=== PATIENT | male | born 1940 | race Caucasian/White ===

== ENCOUNTER 2018-03-12 10:47 | Inpatient (IN) | payer OTHER, SELFPAY ==
[2018-03-03 13:46] VITALS: BMI 40.1
[2018-03-12] VITALS (19 sets, daily range): BP systolic 96–138; BP diastolic 39–73; PULSE 65–92; RESP 12–18; TEMP 36–36.8; O2SAT 90–99; BMI 40.5
--- NOTE | 2018-03-12 | DI.RAD.S_ITS ---
PROCEDURE: XR LUMBAR SPINE 2-3V INDICATIONS: L-4 5 XLIF LAMINECTOMY W ANT AND POST INSTRUMENTATION W/BONE TECHNIQUE: 2 views of the lumbar spine were acquired. COMPARISON: None. FINDINGS: Bones: Intraoperative images demonstrating postsurgical changes compatible with placement of fixation hardware for L4-L5 posterior fusion noted. Fixation hardware is intact. Soft tissues: Overlying bowel gas pattern is normal. No suspicious soft tissue calcifications. IMPRESSION: Expected postsurgical change for except XLIF. Dictated by: Emmie Dias MD, PhD on 03/12/2018 at 18:32 Approved by: Emmie Dias MD, PhD on 03/12/2018 at 18:33
--- NOTE | 2018-03-12 11:32 | PM.PREOP ---
Pre-operative Note Interval Note Pre-op Check: Yes History & Physical Reviewed by Physician and Yes Exam Performed Changes: No
[2018-03-12] MEDS: LACTATED RINGERS 1,000 ML 42 ML IV (11:38)
[2018-03-12] MEDS: CEFAZOLIN 2 GM/100 ML FROZ.PIGGY IV ×2 (12:22→16:12)
[2018-03-12] MEDS: CEFAZOLIN VIAL 1 GM in SODIUM CHLORIDE 0.9% 100 ML 200 ML IV (12:22)
--- NOTE | 2018-03-12 13:09 | SUR.OPER ---
Right lateral on padded OR table. Head on pillow, gel axillary roll, pillow to support left arm. Legs flexed, pillows between legs, gel pad under down leg and ankle. Multiple passes of 3 inch cloth tape across shoulder, hip, upper and lower legs to secure patient on OR table. Prone on spine table, head in foam head support, padded chest and pelvic supports, gel pad at knees, lower legs supported by pillows; nipples, genitalia and toes free of pressure, arms secured on foam padded arm boards at <90 degrees abduction. Tape over blanket at thigh secured to table.
[2018-03-12] MEDS: SODIUM CHLORIDE 0.9% 1,000 ML, GENTAMICIN 80 MG IRR (13:20)
[2018-03-12] MEDS: VANCOMYCIN 1,000 MG VIAL 1000 MG TOP (13:21)
[2018-03-12] MEDS: THROMBIN (BOVINE) 5,000 UNIT VIAL 5000 UNIT TOP (16:02)
[2018-03-12] MEDS: CEFAZOLIN 1 GM VIAL IV (16:13)
[2018-03-12] MEDS: BUPIVACAINE 0.5% (PF) 4 ML, MORPHINE-PF 4 MG, BUTORPHANOL 1 MG, fentaNYL 100 MCG INJ (16:42)
--- NOTE | 2018-03-12 17:43 | P.OP_ITS ---
Operative Date/Time/Diagnoses Date of procedure: 03/12/18 Time of procedure: 17:34 Pre-op diagnosis: Lumbar stenosis with radiculopathy Lumbar spondylolisthesis Morbid obesity Post-op diagnosis: same Procedure & Clinicians Procedure: L4-5 anterior fusion with cage L4-5 posterior fusion L4 and L5 screws Iliac crest bone graft aspirate L4-5 laminectomy Use of microscope Placement of epidural catheter Same procedure as scheduled: Yes Indications: [age] year old male with intractable pain from stenosis. They had failed conservative management and requested operative intervention. Risks and benefits of surgery were discussed and appropriate consents were obtained. Surgeon: Kenny Johnston Anesthesia Type: General Operative Notes Findings: Dural tear, repaired primarily Closure Type: primary Specimen(s): none sent Implants & Drains: NuVasive XLIF and MAS reline screws Applied: catheter Estimated Blood Loss (mL): 100 Procedure in detail: Patient was brought to the operating room and intubated on the table. Time-out was performed. They were then rolled over to the lateral decubitus position with the [id number]. The table was bent and they were taped down in the correct position. X-rays were taken to confirm a true AP and lateral. Preoperative antibiotics were given. The left flank was prepped and draped in standard sterile fashion. Due to his anatomy, we went ahead with a prepsoas Williams approach. Using fluoroscopy, a 3 cm oblique incision was made anterior to the ASIS. We bluntly dissected down with Metzenbaum scissors and split the 3 abdominal muscle layers. We dissected out the retroperitoneal space and using finger guidance, brought our 1st dilator down to the anterior aspect of the psoas muscle. Using neuromonitoring and fluoroscopy, we placed it through the anterior psoas onto the L4-5 disc space. We placed our guidewire and measured our depth for the retractor. We then dilated with the next 2 dilators and then placed our retractor over the dilators. Position was confirmed with fluoroscopy and the retractor was locked down to the bar. We opened up the retractor and checked with neuro monitoring. The retractor was opened posteriorly. An annulotomy was performed. We then performed a complete diskectomy with pituitaries and curettes and box osteotome with the angled instruments. This was done with fluoroscopy. A Horne was advanced across the disc space under fluoroscopy to release the lateral annulus on the opposite side. We then used sequentially larger trials and confirmed under fluoroscopy. An XLIF cage was packed with Osteocell bone graft and impacted into the L4-5 disc space with fluoroscopy for the anterior fusion at this level. The wound was irrigated. The retractor was closed down. The blaze was removed. We carefully removed the retractor with direct visualization to make sure there was no neurovascular or abdominal injury. Final x-rays were taken. The muscle fascia was closed, superficial tissue was closed. The skin was closed. Sterile dressing was placed. The patient was then rolled over on the well-padded prone position on the Min table. Using fluoroscopy for localization, a 13 cm incision was made in the midline. We had used a large incision due to the patient's morbid obesity. We dissected down the right sided paraspinal muscles to expose the lamina and confirmed our position. We then exposed the transverse processes at the level of fusion. We then began placing our screws. A bur was used to decorticate the junction of the facet and transverse process. We then used our Jamshidi needles and placed them down the pedicles with fluoroscopy and switched out the guidewires. I had to make a small 1.5 cm incision further out laterally to be able to get the correct angle to go down his L5 level. We tapped and then placed our screws. The nick was loosely placed and x-rays were taken to confirm positioning and then the set screws were locked down. We then brought in the microscope. A laminectomy was performed at L4-5 with a bur and Kerrison rongeurs. As soon as we started lifting up his ligamentum, we had a dural tear. We found that at the inferior aspect of L3-4 he had a facet cyst that had completely scarred in and calcified down to the dura. We covered the dural tear with a cottoid darryl. We continued out our decompression with the full laminectomy. We had to carefully tease all of the calcified ligamentum off the dura until we finally decompress this area as well as exposed around the dural tear. We then repaired the dural tear with a 6-0 running locking silk stitch. This was water tight with Valsalva. We carefully depressed the dura to reach to the opposite side and decompress the entire central canal. We cleared out the neural foramen. In the end the ball probe could be placed cephalad and caudally across to the opposite side in the foramen and everything was opened. The wound was copiously irrigated. A small stab incision was made over the PSIS and a Jamshidi needle was placed into the iliac crest and several mL of bone marrow was aspirated. This was mixed with our locally harvested bone graft as well as the remaining Osteocell and placed in the posterolateral gutter for fusion at L4-5. An epidural catheter was primed with 4mL of 0.5% bupivacaine, 100 mcg fentanyl, 4 mg Duramorph, 1 mg Stadol. The dura was depressed under the cephalad lamina with a ball probe and the epidural catheter was gently advanced 6 cm cephalad. The fascia was then closed. The epidural was then injected without resistance. The catheter was pulled and we closed more over the fascia. We then went to the left side. Using fluoroscopy, a 4 cm incision was made. The then used Bovie to go down to the soft tissue. We then used the Jamshidi needles and fluoroscopy and neural monitoring to percutaneously place the needles down the left pedicles of L4 and L5. These were switched to guidewires , tapped, and the screws were placed. We placed a nick and locked down. Final x- rays were taken. The wounds were irrigated. The fascia was closed. Vancomycin powder was placed in the wounds. The superficial and skin were closed. Sterile dressing was placed. The patient was then rolled over, extubated, brought to the recovery room with no further complications. Complications: none Condition: stable Disposition: PACU Plan for aftercare: Bedrest overnight with flat bed for dural tear. May resume routine activity tomorrow morning. Inpatient
[2018-03-12] MEDS: INSULIN REGULAR 100 UNIT/ML 3 ML VIAL 6 UNIT SUBCUT (18:30)
--- NOTE | 2018-03-12 18:40 | SUR.PHASEI ---
Has been slow to respond. Opening eyes to voice for past 15-20 minutes but not spitting out oral airway yet.
--- NOTE | 2018-03-12 18:57 | SUR.PHASEI ---
Oral airway finally. Remains in a stuperous kind of state with slowed movement and limited responses verbally.
--- NOTE | 2018-03-12 19:49 | PC.NURSE ---
Geno shift note: Received patient at 1930 from PACU by Morgan MCKEON. Patient sleepy, but arouses easy. Answers questions appropriately. denies pain and nausea. VSS and afebrile. O2 sat 95% on 2L via NC. at bedside providing supportive care. Bed kept in horizontal position, discussed importance and contraindication of raising HOB to patient, family, and staff. Dressing to mid back, CDI, gauze secured with tegaderm. Oriented to room, environment, and plan of care. Call light within reach
[2018-03-12] MEDS: LACTATED RINGERS 1,000 ML 125 ML IV (20:00)
[2018-03-12] MEDS: CELECOXIB 200 MG CAPSULE 400 MG PO (21:09)
[2018-03-12] MEDS: AMLODIPINE 5 MG TABLET 10 MG PO (21:10)
[2018-03-12] MEDS: ATORVASTATIN 20 MG TABLET 40 MG PO (21:11)
[2018-03-12] MEDS: GABAPENTIN 300 MG CAPSULE PO (21:11)
[2018-03-12] MEDS: DOCUSATE 100 MG CAPSULE PO (21:12)
[2018-03-12] MEDS: METOPROLOL IR 50 MG TABLET PO (21:13)
[2018-03-12] MEDS: METFORMIN HCL 500 MG TABLET 1000 MG PO (21:14)
[2018-03-12] MEDS: SENNOSIDES 8.6 MG TABLET 17.2 MG PO (21:14)
[2018-03-12] MEDS: INSULIN NPH/REG 70-30 100 UNIT/ML 3ML VIAL 48 UNIT SUBCUT (22:18)
[2018-03-13] VITALS (7 sets, daily range): BP systolic 99–150; BP diastolic 58–71; PULSE 63–98; RESP 16–18; TEMP 36.5–37.2; O2SAT 89–95
[2018-03-13] MEDS: ONDANSETRON 4 MG/2 ML INJ IV (00:05)
[2018-03-13] MEDS: CEFAZOLIN 2 GM/100 ML FROZ.PIGGY IV ×2 (00:05→08:23)
--- NOTE | 2018-03-13 02:56 | PC.NURSE ---
security shift manager 0015: Pt complaining of nausea and vomiting. Medication given. Pt denies pain at this time. Linen change done. Education given to patient about proper body mechanics. Pt on 2 L on home CPAP.
[2018-03-13] MEDS: HYDROMORPHONE 1 MG INJ 0.5 MG IV (05:48)
--- NOTE | 2018-03-13 06:50 | PM.PNPO.1 ---
Subjective Date Patient Seen: 03/13/18 Time Patient Seen: 06:50 Interval history: Minimal pain. Has slowly been increasing to about a 2/10 just across the low back. No headaches or nausea. Exam Vital Signs (past 8 hours): - 03/13/18 00:09 03/13/18 04:00 Temperature 97.7 F 99.0 F Pulse Rate 98 H 94 H Respiratory Rate 18 18 Blood Pressure 127/60 143/63 H Pulse Oximetry 94 94 Oxygen Delivery Method Nasal Cannula,CPAP Oxygen Flow Rate 2 Const Orientation: alert and oriented x3 Back/Spine/Pelvis Other: Moderate dry drainage on 2/3 of the dressing. 5/5 motor both lower extremities Assessment & Plan Post-op Postoperative Procedures Operation Date: 03/12/18 12:15 Actual Procedures Side Surgeon p L4-5 Laminectomy with Anterior and Posterior(XLIF)Instrumented fusion with bone graft Kenny Johnston MD stable after laminectomy and fusion. I have taken away his activity restrictions and we sat him up in bed. No headaches or nausea or photophobia. I think the spinal fluid leak is solidly sealed at this point and can increase activity normally.
[2018-03-13] MEDS: HYDROCODONE/ACET 5/325 TABLET 1 TAB PO ×3 (06:58→21:13)
[2018-03-13 07:20] LABS: Hematocrit 39.3 % (41-53); Hemoglobin 12.6 g/dL (13.5-17.5)
[2018-03-13 07:28] LABS: BUN Creatinine Ratio 28.8 (6-22); Blood Urea Nitrogen 23 mg/dL (9-20); Calcium 8.3 mg/dL (8.4-10.2); Carbon Dioxide 27 mmol/L (22-32); Chloride 100 mmol/L (98-107); Estimated Glomerular Filt Rate > 60.0 mL/min (>60); Glucose 180 mg/dL (80-110); HEMOLYSIS < 15 (0-50); Potassium 5.1 mmol/L (3.4-5.1); Sodium 136 mmol/L (137-145)
[2018-03-13] MEDS: INSULIN ASPART 100 UNIT/ML INSULN PEN SUBCUT ×2 (08:24→21:15)
[2018-03-13] MEDS: METOPROLOL IR 50 MG TABLET PO ×2 (08:25→21:00)
[2018-03-13] MEDS: CELECOXIB 200 MG CAPSULE PO ×2 (08:25→21:00)
[2018-03-13] MEDS: ASPIRIN EC 81 MG TABLET PO (08:25)
[2018-03-13] MEDS: guaiFENesin ER 600 MG TAB 1200 MG PO (08:25)
[2018-03-13] MEDS: METFORMIN HCL 500 MG TABLET 1000 MG PO ×2 (08:26→21:15)
[2018-03-13] MEDS: DOCUSATE 100 MG CAPSULE PO ×2 (08:28→21:00)
--- NOTE | 2018-03-13 09:18 | CM.DANOTE ---
Discharge Planning/Care Management DCP: assessment: case received, EMR reviewed and met briefly this morning with pt as he was just starting and OT/PT session. Introduced self and role. Pt is a 78 year old male who admitted yesterday for a planned spinal/anterior and posterior surgery. Surgeon: Dr. Johnston. OP report notes dural tear and with pt arriving to floor from PACU last night: 19:30 Payer: [facility] PCP: Pat Hammonds Pt notes it was already hard for me to get out of bed because of my size (dx morbid obesity. 272 LBS with large abdominal girth. Pt plans for home when stable for same with his 's supportive assist. P: assured pt DCP team would be following as his therapy continues to assist with any d/c needs that may arise. CM Discharge Assessment Start: 03/13/18 09:17 Freq: Status: Active Protocol: Document 03/13/18 09:17 ITV (Rec: 03/13/18 09:18 ITV [id number]) Discharge Planning Assessment Advance Directives? Yes Advance Directives on File No History Provided By Patient Medical Record Prior Living Arrangements House Household Members spouse Whiteboard Updated in Patient Room with Yes name and ext. # of Toilet And Laundry Soap Supervisor Review Status In Process Next Review Type Continued Stay Review Pre-Anesthesia Assessment Start: 03/03/18 13:46 Freq: Status: Active Protocol: Document 03/03/18 13:46 CAB (Rec: 03/03/18 14:25 CAB [id number]) Pre-Anesthesia Assessment Patient Also Known As (AKA) Bill Patient Information Reviewed Via Phone Assessment Assessment Completed With Patient Lab Results BMP/CMP CBC Primary Care Provider Maurizio Seen Specialist in Last 12 Months Yes Specialist Seen Crystallography Teacher Lpn Private Duty Orthopedist Other Comment Vascular clearance to admitting to be scanned to chart Primary Language [employer] Supervisor Required No Height 177.8 cm Weight 127.006 kg Body Mass Index (BMI) 40.1 Hearing Ability Normal Visual Assist Magnifying Glass Dentition Type Teeth, Natural Present Barriers to Learning None Hx Anesthesia Reactions Yes: Nausea, vomiting post-op endarterectomy 07/2017 Hx Family Anesthesia Reaction No Hx Malignant Hyperthermia No Hx Blood Transfusions No Anesthesia Review Requested Yes: PAC Courtesy re: comorbidities Electrician Deck No alcohol intake current alcohol intake frequency a few times a week Smoking Status Former smoker Smoking packs per day 2 how long ago did patient quit smoking Quit 1983 Substance Use Type does not use Pain Present Pain Reported Musculoskeletal Symptoms Abnormal Gait Back Pain Difficulty Walking Joint Pain Neck Pain Numbness Radiating Pain into Limb Tingling History of Falling (Recent or History of No ) Patient is completely paralyzed or No completely immobile Mental Status Oriented to own ability Is patient on oxygen? No Does patient have MOREJON/SOB Yes: W/mild exertion, pt feels r/t increased weight gain Hx Sleep Apnea Yes CPAP/BIPAP use prescribed and used routinely Will Bring CPAP/BIPAP DOS Yes Currently Taking a Beta Sabrina Yes: Metoprolol Can You Climb a Flight of Stairs Without No SOB Hx Chest Pain Yes: Prior to cardiac stent placement Hx SOB Yes Hx Syncope or Dizziness Yes: r/t hypoglycemia, resolved Anti-Coagulant Therapy Yes: Aspirin 81mg/day Has a Crystallography Teacher Yes: Dr. Bowman Hx Pacemaker/ICD No Pacemaker Rep Required? No Cardiac Clearance Received Yes Comment Cardiac clearance 11/14/17 to admitting to be scanned to chart Diet Type At Home Other dysphagia No Comment Weight Watchers Genitourinary Symptoms Dribbling, Post-void Bladder Pattern Nocturia Urinary Catheter Present No Hx Urinary Self Catheterization No Diabetes Yes: Pt checks blood sugars bid HgbA1C 6.8 Date 12/29/17 Hx Drug Resistant Organism No Presence of External or Internal Medical Yes Devices Comment Cardiac stents x 2 Have you traveled outside the [place] in the last 30 days? Marital Status Lives With spouse Prior Living Arrangements House Number of Floors (Floors) Two Floors Number of Stairs To Enter/Railing? 2 stairs, railing present Support System Friend(s) Spouse Does the Patient Have Assistance After Yes Surgery Patient Discharge Plan Description Return Home Comment Pt advised 2-3 day length of stay per surgeon's office Feels Safe in Current Environment Yes Been Physically Hurt or Threatened By a No Person in Current Environment Do you have thoughts of harming yourself None or others? Are you currently considering suicide? No Do you have a plan to hurt yourself or No Plan others? Do You Have Any Spiritual Beliefs That No May Affect Your HC Choices? Do You Have Any Cultural Practices That No May Affect Your HC Choices? Spiritual Referral None Who Can We Speak to About Patient's Care Family, friends Identifying Code for Release of Patient Declines to issue Information Health Care Proxy/Next of Kin Gunjan () Health Care Proxy or [phone] Emergency Contact Name Gunjan () Emergency Contact or [phone] Advance Directives? Yes Advance Directives on File No Requested Patient Bring Advanced Yes Directives DOS Power of Metal Lather Yes Power of Metal Lather Name Gunjan () Power of Metal Lather or [phone] PAC Instructions Bring CPAP/BIPAP Durable medical equipment Medications to take/avoid Nasal antibiotic No ETOH/petroleum product on skin DOS NPO Post-op transportation Pre-surgical wash Sensory aids Sturdy shoes/comfortable clothes
--- NOTE | 2018-03-13 10:12 | PT.IIE ---
Current Diagnoses Spondylolisthesis, lumbar region (03/12/18) Spinal stenosis, lumbar region with neurogenic claudication (03/12/18) Surgery Performed Operation Date: 03/12/18 12:15 Actual Procedures p L4-5 Laminectomy with Anterior and Posterior(XLIF)Instrumented fusion with bone graft - Kenny Johnston MD Surgical History (Last Updated 03/03/18 @ 15:05 by Colleen Leon RN) H/O vasectomy (Acute) History of carpal tunnel surgery of right wrist (Acute) History of right-sided carotid endarterectomy (Acute 08/01/17) Hx of heart artery stent (Acute ~2009) Hx of hernia repair (Acute) S/P trigger finger release (Acute) Medical History (Last Updated 03/03/18 @ 15:00 by Colleen Leon RN) CAD (coronary artery disease) (Acute) Carotid stenosis (Acute) Diabetes (Acute) Easy bruisability (Acute) Edema (Acute) HTN (hypertension) (Acute) Hyperlipidemia (Acute) LULU on CPAP (Acute) PVD (peripheral vascular disease) (Acute) RLS (restless legs syndrome) (Acute) Tingling (Acute) Physical Therapy Inpatient Evaluation/Re-Eval M1 PT/OT-IP Prior Functional Status Start: 03/13/18 09:42 Freq: NEEDED Status: Active Protocol: Document 03/13/18 09:40 NFW (Rec: 03/13/18 10:12 NFW [id number]) Medical Review Prior Functional Status Medical History Reviewed Yes Mobility and Gait Prior to surgery patient did not use any assistive devices for mobility or gait. Activities of Daily Living and IADL's Patient reports independence in dressing including shoes and socks and in hygiene. Prior Functional Level (Other details) Extracurricular activities include riding a bicycle with his and traveling in their camper. Walking prior to surgery was very limited to only as necessary. Standing was limited to ~ 15 minutes at a time. Social History Household Members spouse Living Arrangements House Number of Floors (Floors) Two Floors Number of Stairs To Enter/Railing? Two steps to enter home from garage, half wall on one side for support. All bedrooms are upstairs, ~ 13 steps, hand rail on right with ascending. Patient does have a recliner on the main level which he used extensively prior to surgery. 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 M2 PT-IP Current Condition Start: 03/13/18 09:42 Freq: NEEDED Status: Active Protocol: Document 03/13/18 09:40 NFW (Rec: 03/13/18 10:12 [facility] [id number]) Physical Therapy Current Condition Current Condition Evaluation Date 03/13/18 Treatment Diagnosis L4-5 ant. fusion with cage; L4 -5 post fusion; L4-5 screws; L4-5 Laminectomy Onset Date 03/12/18 surgery Precautions Lumbar Precautions Log Roll No Twisting Limit Bending Gait Belt above Incisional Area Other Precautions Lifting restriction at 5 lbs, Weight Bearing Status Weight Bearing Status Full Weight Bearing M3 PT-IP Subjective Start: 03/13/18 09:42 Freq: NEEDED Status: Active Protocol: Document 03/13/18 09:40 NFW (Rec: 03/13/18 10:12 [facility] [id number]) Subjective Physical Therapy Visit Type Type Initial Evaluation Visit Start Time 08:40 Visit Stop Time 09:40 Total Visit Minutes 60 Notes Treatment in conjunction with OT. Changing of dressing at surgical site by nursing once patient up and sitting. Number of PASSENGER CAR CONDUCTOR Visits 0 Physical Therapy Visit Comments Patient Comments Patient reports pressure and burning at surgical site at back. Also reports soreness/ numbness into LLE. Patient Goals Patient's goal to return home with . Therapy Pain Assessment Pain When Pain Assessed At Rest Pain Present Pain Present Pain Reported Location back Intensity 1 Scale Used Numeric (1 - 10) Description Burning With Movement Pain Management Techniques Apply Cold M4 PT-IP Mobility and Gait Start: 03/13/18 09:42 Freq: NEEDED Status: Active Protocol: Document 03/13/18 09:40 NFW (Rec: 03/13/18 10:12 NF [id number]) PT-Bed Mobility Assessment Rolling Type of Rolling Roll to Right Roll to Left Level of Assist Minimal Assistance Supine to Sit Supine to Sit Maximum Assistance 1 Person Assistance Scooting Scooting to Edge of Bed Moderate Assistance PT-Transfer Assessment Sit to and From Stand Sit to and from Stand Minimal Assistance 1 Person Assistance Equipment Transfer Assistive Device Gait Belt Front Wheeled Walker Orthotic/Prosthetic Devices or Brace: No Transfers Transfer Destination Chair Transfer Ability Level of Assist Minimal Assistance 1 Person Assistance Use of Upper Extremities Comments Mobility Comments Most difficulty is in bed mobility from sidelying to sitting and also with scooting of hips forward in bed. Has difficulty in lifting his own body weight with UEs. Gait Assessment Gait Gait Assistance Required: Minimum Assistance 1 Person Assist Distance (Feet) 15 Assistive Devices Assistive Device Gait Belt Front Wheeled Walker Orthotic/Prosthetic Devices or Brace: No Gait Deviations General Gait Pattern Decreased Stride Length Decreased Feet Clearance Flexed Trunk Step-to Gait Factors Limiting Gait Function Factors Limiting Gait Function Abnormal Tonal Influences Decreased Activity Tolerance Decreased Strength Pain Poor Balance Poor Safety Awareness Comments Gait Comments Patient ambulated 5' with FWW then became nauseous, patient had dry heaves, rested then walked an additional 10'. Gait pattern step to leading with LLE. Reported LLE feeling funny. Once patient is standing min a with ambulation. PT-Balance Assessment Standing Balance and Reactions Static Standing Balance Ability Normal Dynamic Standing Balance Ability Good M5 PT-IP Objective Assessments Start: 03/13/18 09:42 Freq: NEEDED Status: Active Protocol: Document 03/13/18 09:40 NFW (Rec: 03/13/18 10:12 [facility] [id number]) Orientation Orientation/Cognition Level of Alertness Alert Language Function Ability Word Finding Difficulties Sensation Assessment Sensation Gross Sensation WNL Comments Sensation Comments Sensation tested LEs only and intact Muscle Tone Muscle Tone WNL Yes Comments Muscle Tone Comments MMT to long toe extensors and dorsiflexors - WNL M6 PT-IP Treatment Start: 03/13/18 09:42 Freq: NEEDED Status: Active Protocol: Document 03/13/18 09:40 NFW (Rec: 03/13/18 10:12 [facility] [id number]) Physical Therapy Treatment Education Education Provided Precautions Post-Op Packet Safety M7 PT-IP Assessment and Plan Start: 03/13/18 09:42 Freq: NEEDED Status: Active Protocol: Document 03/13/18 09:40 NFW (Rec: 03/13/18 10:12 [facility] [id number]) PT Summary Assessment and Plan Potential Rehabilitation Potential Good Status of Condition at Evaluation Evolving Summary Impairments Pain Strength Balance Coordination Tone Bed Mobility Transfers Gait Activity Tolerance Progress Towards Goals Progressing Toward Goals Assessment Summary Patient s/p lumbar surgery x 1 day with residual soreness at incision site. Most limitation in bed mobilities with difficulty shifting his weight in bed, supine or in sitting. BP supine 139/45, pulse 85. BP sitting 139/74, pulse 83. BP after activity 155/59, pulse 83; O2 96 Goals Bed Mobility Goal Independent Transfer Goal Contact Guard Assistance Gait Goal Independent Gait Distance 100' Days to Meet Goals 2 Frequency of Treatment Frequency Of Treatment Twice a Day Treatment Plan Physical Therapy Treatment Plan Bed Mobility Training Transfer Training Gait Training Therapeutic Exercise Balance Retraining Post Op Education Discharge Planning Hot or Cold Pack Neuromuscular Re-ed Recommendations To Nursing Amount of Assist Needed 1 Person Assist Discharge Recommendations PT Discharge Recommendations Home with Assistance
--- NOTE | 2018-03-13 11:53 | OT.IP.EVAL ---
Current Diagnoses Spondylolisthesis, lumbar region (03/12/18) Spinal stenosis, lumbar region with neurogenic claudication (03/12/18) Surgery Performed Operation Date: 03/12/18 12:15 Actual Procedures p L4-5 Laminectomy with Anterior and Posterior(XLIF)Instrumented fusion with bone graft - Kenny Johnston MD Past Medical History (Last Updated 03/03/18 @ 15:00 by Colleen Leon RN) CAD (coronary artery disease) (Acute) Carotid stenosis (Acute) Diabetes (Acute) Easy bruisability (Acute) Edema (Acute) HTN (hypertension) (Acute) Hyperlipidemia (Acute) LULU on CPAP (Acute) PVD (peripheral vascular disease) (Acute) RLS (restless legs syndrome) (Acute) Tingling (Acute) Surgical History (Last Updated 03/03/18 @ 15:05 by Colleen Leon RN) H/O vasectomy (Acute) History of carpal tunnel surgery of right wrist (Acute) History of right-sided carotid endarterectomy (Acute 08/01/17) Hx of heart artery stent (Acute ~2009) Hx of hernia repair (Acute) S/P trigger finger release (Acute) Occupational Therapy Inpatient Evaluation/Re-Eval M1 PT/OT-IP Prior Functional Status Start: 03/13/18 09:42 Freq: NEEDED Status: Active Protocol: Document 03/13/18 09:40 NFW (Rec: 03/13/18 10:12 NFW [id number]) Medical Review Prior Functional Status Medical History Reviewed Yes Mobility and Gait Prior to surgery patient did not use any assistive devices for mobility or gait. Activities of Daily Living and IADL's Patient reports independence in dressing including shoes and socks and in hygiene. Prior Functional Level (Other details) Extracurricular activities include riding a bicycle with his and traveling in their camper. Walking prior to surgery was very limited to only as necessary. Standing was limited to ~ 15 minutes at a time. Social History Household Members spouse Living Arrangements House Number of Floors (Floors) Two Floors Number of Stairs To Enter/Railing? Two steps to enter home from garage, half wall on one side for support. All bedrooms are upstairs, ~ 13 steps, hand rail on right with ascending. Patient does have a recliner on the main level which he used extensively prior to surgery. 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 M1 PT/OT-IP Prior Functional Status Start: 03/13/18 11:17 Freq: NEEDED Status: Active Protocol: Document 03/13/18 11:18 [facility] (Rec: 03/13/18 11:53 [facility] [id number]) Medical Review Prior Functional Status Medical History Reviewed Yes Mobility and Gait Prior to surgery patient did not use any assistive devices for mobility or gait. Activities of Daily Living and IADL's Patient reports independence in dressing including shoes and socks and in hygiene. Pt states however taking longer time to do his socks and needing to put his feet up on a stool to assist. Prior Functional Level (Other details) Extracurricular activities include riding a bicycle with his and traveling in their camper. Walking prior to surgery was very limited to only as necessary. Standing was limited to ~ 15 minutes at a time. Social History Household Members spouse Living Arrangements House Number of Floors (Floors) Two Floors Number of Stairs To Enter/Railing? Two steps to enter home from garage, half wall on one side for support. All bedrooms are upstairs, ~ 13 steps, hand rail on right with ascending. Patient does have a recliner on the main level which he plans on using initially and sleep downstairs. 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 M2 OT-IP Current Condition Start: 03/13/18 11:17 Freq: Status: Active Protocol: Document 03/13/18 11:18 [facility] (Rec: 03/13/18 11:53 [facility] [id number]) Occupational Therapy Current Condition Current Condition Evaluation Date 03/13/18 Treatment Diagnosis Lumbar Stenosis Diagnosis Onset Date 03/12/18 Post Operative Precautions Lumbar Precautions Log Roll No Twisting Limit Bending Gait Belt above Incisional Area Other Precautions Lifting restriction at 5 lbs, Weight Bearing Status Weight Bearing Status Full Weight Bearing M3 OT- IP Subjective and Pain Start: 03/13/18 11:17 Freq: Status: Active Protocol: Document 03/13/18 11:18 [facility] (Rec: 03/13/18 11:53 [facility] [id number]) OT- Subjective Occupational Therapy Visit Type Type Initial Evaluation Visit Start Time 08:50 Visit Stop Time 09:50 Total Visit Minutes 60 Notes Pt present at the end of OT eval . COtxt with PT for eval. Occupational Therapy Visit Comments Patient Comments Pt agreeable to get up. OT Pain Assessment Pain When Pain Assessed At Rest Pain Present Pain Present Pain Reported Location back Intensity 1 M4 OT- IP ADL's Start: 03/13/18 11:17 Freq: Status: Active Protocol: Document 03/13/18 11:18 [facility] (Rec: 03/13/18 11:53 [facility] [id number]) OT ADL-Grooming Comments OT Grooming Comments Pt able to wash his face after given wash cloth. OT ADL-Dressing General Eval Lower Body Dressing Ability Maximum Assistance Areas Needing Assistance Socks Comments OT Dressing Comments Able to initiate education of sock aid, sales supervisor, long handled shoe horn for LB dressing needs. Pt able to do his socks with KHALIDA to help eddie socks all the way on the sock aid. Pt's to be able to assist with needs at home per . OT ADL-Toileting Comments OT Toileting Comments Pt has counter on left side for toilet at home be would benefit from BSC especially coming to stand. OT ADL-Bathing Comments OT Bathing Comments Pt able to sponge off his body and arms and needing assist for his back before having assist to change out his gown. Pt has WIS at home with corner seat, may benefit from suction cup grab bar or shower chair pending progress. M6 OT- IP Functional Cognition Start: 03/13/18 11:17 Freq: Status: Active Protocol: Document 03/13/18 11:18 [facility] (Rec: 03/13/18 11:53 [facility] [id number]) Cognitive Factors Limiting Selfcare Function Cognitive Ability Level of Alertness Alert Patient Orientation Name Place Situation Attention Span Ability Capable of Focused Attention Capable of Sustained Attention Ability to Follow Commands Able to Follow One Step Commands Memory Description Short Term Impaired Safety Awareness Decreased Recall of Precautions Decreased Ability to Apply Precautions Underestimates Need for Assistance Problem Solving Ability Unable to Identify Errors Needs Assist to Identify Solutions Executive Function Ability Unable to Organize Plans Unable to Remember Details Unable to Integrate Past Experience With Present Action Abstract Thinking Ability Unable to Make Generalizations Unable to Understand Generalizations Unable to Draw Logical Conclusions Cognitive Comments Cognitive Assessment Comments Pt having some word finding problems, however pt states prior has difficulty with that and has history of dementia in his family. Pt need concrete verbal cues. Pt tends to be impulsive. Pt not able to recall any back precautions and after educations needing increased time to recall. OT- Vision and Hearing OT- Hearing Assessment OT- Hearing Assessment WFL M7 OT- IP Mobility and Balance Start: 03/13/18 11:17 Freq: Status: Active Protocol: Document 03/13/18 11:18 [facility] (Rec: 03/13/18 11:53 [facility] [id number]) OT- Bed Mobility Assessment Rolling Type of Rolling Roll to Right Level of Assistance Maximum Assistance Supine to Sit Supine to Sit Assist Maximum Assistance 1 Person Assistance Scooting Scooting to Edge of Bed Maximum Assistance Total Assistance OT-Transfer Assessment Sit to and From Stand Sit to and from Stand Minimal Assistance 1 Person Assistance Transfers Transfer Ability Minimal Assistance 1 Person Assistance Technique Transfer Destination Chair Transfer Technique Stand Step Pivot Devices Transfer Assistive Devices Gait Belt Front Wheeled Walker Comments Mobility Comments KHALIDA with FWW, pt a bit shaky with RLE and heavily relies on his BUE on the FWW while walking with FWW. O2 on 2L in the room 97% and when taken off for trial from 91-95% and after treatment 94% and per nursing states would be okay to keep off at this time and that she would monitor him as needed. BP supine 139/46 and sitting 139/74. OT- Balance Assessment Sitting Balance and Reactions Static Sitting Balance Ability Normal Dynamic Sitting Balance Ability Good Standing Balance and Reactions Static Standing Balance Ability Fair M8 OT- IP Objective Assessments Start: 03/13/18 11:17 Freq: Status: Active Protocol: Document 03/13/18 11:18 [facility] (Rec: 03/13/18 11:53 [facility] [id number]) OT Gross Range of Motion Upper Extremity Range of Motion Assessment Within Functional Limits M9 OT- IP Assessment and Plan Start: 03/13/18 11:17 Freq: Status: Active Protocol: Document 03/13/18 11:18 [facility] (Rec: 03/13/18 11:53 [facility] [id number]) OT Summary Assessment and Plan Potential Rehabilitation Potential Good Analytic Complexity at Evaluation Low Summary OT Impairments Strength Balance Functional Cognition Functional Mobility Grooming Dressing Toileting Bathing Toilet Transfers Shower Transfers Progress Towards Goals Slow Progress due to Pain Slow Progress due to Activity Tolerance Slow Progress due to Cognition Assessment Summary Pt Low complexity and main barriers are steps, decreased safety awareness, ability to incorporate back precautions at this time, bed mobility and pending progress looking to go home with assist from who is supportive. Continue OT to work on safety with back precautions and family training with for ADL and equipment needs. Goals Grooming Goal Standby Assistance Dressing Goal Minimal Assistance Toileting Goal Standby Assistance Bathing Goal Minimal Assistance Toilet Transfer Goal Standby Assistance Shower Transfer Goal Contact Guard Assistance Patient/Caregiver Education Goal Demonstrate Post-Op Precautions Caregiver Independent Assisting Patient Days to Meet Goals 5 Frequency of Treatment Frequency Of Treatment Once a Day Treatment Plan OT Treatment Plan ADL Training Functional Cognition Training Functional Mobility Patient/Family Education Discharge Planning Other Treatment Recommendations and Next Standing at sink, family Treatment Focus trainign with . Discharge Recommendations OT Discharge Recommendations Home with Assistance Home Equipment Needs suction cup grab bar, HHSP, possible shower chiar and BSC.
[2018-03-13] MEDS: INSULIN NPH/REG 70-30 100 UNIT/ML 3ML VIAL 37 UNIT SUBCUT (12:28)
--- NOTE | 2018-03-13 14:31 | PT.IPTN ---
Current Diagnoses Spondylolisthesis, lumbar region (03/12/18) Spinal stenosis, lumbar region with neurogenic claudication (03/12/18) Surgery Performed Operation Date: 03/12/18 12:15 Actual Procedures p L4-5 Laminectomy with Anterior and Posterior(XLIF)Instrumented fusion with bone graft - Kenny Johnston MD Physical Therapy Treatment Note M2 PT-IP Current Condition Start: 03/13/18 09:42 Freq: NEEDED Status: Active Protocol: Document 03/13/18 13:30 NFW (Rec: 03/13/18 14:31 NF [id number]) Physical Therapy Current Condition Current Condition Evaluation Date 03/13/18 Treatment Diagnosis L4-5 ant. fusion with cage; L4 -5 post fusion; L4-5 screws; L4-5 Laminectomy Onset Date 03/12/18 surgery Precautions Lumbar Precautions Log Roll No Twisting Limit Bending Gait Belt above Incisional Area Other Precautions Lifting restriction at 5 lbs, Weight Bearing Status Weight Bearing Status Full Weight Bearing M3 PT-IP Subjective Start: 03/13/18 09:42 Freq: NEEDED Status: Active Protocol: Document 03/13/18 13:30 NFW (Rec: 03/13/18 14:31 NF [id number]) Subjective Physical Therapy Visit Type Type Treatment Note Visit Start Time 13:30 Visit Stop Time 14:10 Total Visit Minutes 40 Number of LASER SPECIALIST Visits 0 Physical Therapy Visit Comments Patient Comments Patient sitting in chair comfortably. No complaints of pain. M4 PT-IP Mobility and Gait Start: 03/13/18 09:42 Freq: NEEDED Status: Active Protocol: Document 03/13/18 13:30 NFW (Rec: 03/13/18 14:31 [facility] [id number]) PT-Bed Mobility Assessment Rolling Type of Rolling Roll to Right Roll to Left Level of Assist Minimal Assistance Supine to Sit Supine to Sit Minimal Assistance 1 Person Assistance Sit to Supine Sit to Supine Minimal Assistance 1 Person Assistance Scooting Scooting to Edge of Bed Minimal Assistance PT-Transfer Assessment Sit to and From Stand Sit to and from Stand Contact Guard Assistance 1 Person Assistance Equipment Transfer Assistive Device Gait Belt Front Wheeled Walker Orthotic/Prosthetic Devices or Brace: No Transfers Transfer Destination Bed Toilet Transfer Technique Stand Step Pivot Transfer Ability Level of Assist Contact Guard Assistance 1 Person Assistance Use of Upper Extremities Comments Mobility Comments Significant improvement in bed mobilities. Up and down from bed x2. Scoots best when on his side vs. on his back. Min A needed with occasional cuing for proper form. Gait Assessment Gait Gait Assistance Required: Contact Guard Assist 1 Person Assist Distance (Feet) 50 Assistive Devices Assistive Device Gait Belt Front Wheeled Walker Orthotic/Prosthetic Devices or Brace: No Gait Deviations General Gait Pattern Decreased Stride Length Decreased Feet Clearance Flexed Trunk Factors Limiting Gait Function Factors Limiting Gait Function Abnormal Tonal Influences Decreased Activity Tolerance Decreased Strength Poor Balance Comments Gait Comments Improved in gait with proper step through gait pattern. Ambulated ~15' x 3, CGA and occasional cuing. No complaints of leg pain with ambulation. M5 PT-IP Objective Assessments Start: 03/13/18 09:42 Freq: NEEDED Status: Active Protocol: Document 03/13/18 09:40 NFW (Rec: 03/13/18 10:12 [facility] [id number]) Orientation Orientation/Cognition Level of Alertness Alert Language Function Ability Word Finding Difficulties Sensation Assessment Sensation Gross Sensation WNL Comments Sensation Comments Sensation tested LEs only and intact Muscle Tone Muscle Tone WNL Yes Comments Muscle Tone Comments MMT to long toe extensors and dorsiflexors - WNL M6 PT-IP Treatment Start: 03/13/18 09:42 Freq: NEEDED Status: Active Protocol: Document 03/13/18 13:30 NFW (Rec: 03/13/18 14:31 [facility] [id number]) Physical Therapy Treatment Education Education Provided Precautions Post-Op Packet Safety M7 PT-IP Assessment and Plan Start: 03/13/18 09:42 Freq: NEEDED Status: Active Protocol: Document 03/13/18 13:30 NFW (Rec: 03/13/18 14:31 [facility] [id number]) PT Summary Assessment and Plan Summary Assessment Summary BP before activity 121/46, pulse 68, O2 97. Has not used oxygen since morning session. Much more alert this afternoon and significant improvement in bed mobility and ambulation performance. Frequency of Treatment Frequency Of Treatment Twice a Day Recommendations To Nursing Amount of Assist Needed 1 Person Assist
--- NOTE | 2018-03-13 15:37 | PC.NURSE ---
1400- Pts first rosales catheter that was placed after surgery taken out this am at 0600. Pt given urinal when needing to void. He did not void all shift, tried to bladder scan pt but was not reading correctly. Rosales, 16f placed and pt had 225cc out. Tolerating rosales well. Given 1 vicodin for headache and helpful. in room.
[2018-03-13] MEDS: METFORMIN HCL 500 MG TABLET PO (17:18)
--- NOTE | 2018-03-13 18:02 | PC.NURSE ---
Addendum entered by Ana Rosa Bosch R.N. 03/13/18 22:31: Relatively uneventful evening. Med at 2110 for discomfort w/good relief. HL intact/patent. HS CBG = 205, had 2u novolog and 48u 70/30. Dsgs remain CDI. Stable post op course. Call light w/in reach, bed alarm on for pt safety. Continue w/plan of care. Original Note: Addendum entered by Ana Rosa Bosch R.N. 03/13/18 18:04: HL in LFA intact/patent. AC CBG = 168, pt refused S/S at this time. Call light w/in reach. Original Note: Pt up in chair, Denies discomfort at this time. Dsg to surgical back and left side CDI.\\
[2018-03-13] MEDS: ATORVASTATIN 20 MG TABLET 40 MG PO (21:00)
[2018-03-13] MEDS: AMLODIPINE 5 MG TABLET 10 MG PO (21:00)
[2018-03-13] MEDS: GABAPENTIN 300 MG CAPSULE PO (21:00)
[2018-03-13] MEDS: SENNOSIDES 8.6 MG TABLET 17.2 MG PO (21:14)
[2018-03-13] MEDS: INSULIN NPH/REG 70-30 100 UNIT/ML 3ML VIAL 48 UNIT SUBCUT (21:16)
[2018-03-14 00:39] VITALS: BP 124/58; PULSE 89; RESP 18; TEMP 36.8; O2SAT 92
[2018-03-14 04:00] VITALS: BP 132/63; PULSE 90; RESP 16; TEMP 36.3; O2SAT 94
[2018-03-14] MEDS: HYDROCODONE/ACET 5/325 TABLET 1 TAB PO ×2 (05:46→10:01)
--- NOTE | 2018-03-14 08:47 | P.DS_ITS ---
History of Present Illness Date Patient Seen: 03/14/18 Chief complaint: [id number] Narrative: Patient seen bedside s/p L45 laminectomy and anterior/posterior (XLIF ) instrumented fusion with bone graft with Dr. Johnston on 03/12/18. Patient is POD #2. Patient's pain is well controlled, no s/s related to dural tear that was discovered perioperatively. He has been having urinary retention, however, and had to be catheterized overnight. The catheter was removed at 6 am this morning and he has had no difficulty since then. Discharge Providers Date of admission: 03/12/18 10:47 Primary care physician: Pat Hammonds MD Consults: 03/12/18 19:42 Consult to Occupational Therapy Evaluate & Treat Comment: Physician Instructions: Evaluate and treat Consult to Physical Therapy Evaluate & Treat Comment: Physician Instructions: Evaluate and Treat Discharge provider: Rosana Tony PA-C Discharge Date: 03/14/18 Summary Discharge Diagnosis: 1. Lumbar stenosis with neurogenic lcaudications 2. Spondylolisthesis of the lumbar region Status at Discharge Cognitive/behavioral status at discharge: Patient was admitted to the hospital s /p L45 laminectomy and anterior/posterior (XLIF) instrumented fusion with bone graft with Dr. Johnston on 03/12/18. Patient tolerated the procedure well, however, a dural tear was discovered during his surgery. This was repaired at that time and patient has not had any complaints related to it. He was seen by PT who recommended that he be discharged home. He did have urinary retention during his stay and had to be catheterized overnight on 03/13/18. He was stable and ready for discharge on 03/14/18. Functional status at discharge: uses cane/walker Overall status at discharge: patient is progressing back to baseline Time Spent with Patient Less than 30 minutes Exam Vital Signs (past 8 hours): - 03/14/18 04:00 Temperature 97.4 F L Pulse Rate 90 Respiratory Rate 16 Blood Pressure 132/63 Pulse Oximetry 94 Oxygen Delivery Method Nasal Cannula,CPAP Oxygen Flow Rate 2 Narrative Exam Narrative: WDWN NAD A&Ox3. Dressings CDI, moving well, calves are soft but patient does have bilateral LE edema that is chronic in nature. Objective Labs Result Diagrams: 03/13/18 06:27 12/07/18 06:27 Discharge Plan Discharge Plan Patient Disposition: Home Discharge Med Rec/Prescriptions Prescriptions: New celecoxib [Celebrex] 200 mg Capsule 200 mg PO BID Qty: 60 RF: 0 sennosides [senna] 8.6 mg Tablet 17.2 mg PO BEDTIME Qty: 0 RF: 0 hydrocodone-acetaminophen 5-325 mg Tablet 1 tab PO Q4HR PRN (Reason: Pain, Moderate (4-6)) Qty: 40 RF: 0 hydroxyzine pamoate 25 mg Capsule 25 mg PO Q4HR PRN (Reason: Nausea And Vomiting) Qty: 50 RF: 0 alfuzosin 10 mg tablet extended release 24 hr 10 mg PO DAILY Qty: 30 RF: 0 Continue atorvastatin 40 mg Tablet 40 mg PO BEDTIME RF: 0 insulin NPH and regular human [Humulin 70/30 U-100 Insulin] 100 unit/mL (70-30 ) Suspension 37 unit SUBCUT QNOON RF: 0 insulin NPH and regular human [Humulin 70/30 U-100 Insulin] 100 unit/mL (70-30 ) Suspension 48 unit SUBCUT BEDTIME RF: 0 aspirin 81 mg Tablet,Delayed Release (Dr/Ec) 81 mg PO DAILY RF: 0 amlodipine 10 mg Tablet 10 mg PO BEDTIME RF: 0 metformin 1,000 mg Tablet 1,000 mg PO BID RF: 0 metformin 1,000 mg Tablet 500 mg PO QPM RF: 0 metoprolol tartrate 50 mg Tablet 50 mg PO BID RF: 0 nitroglycerin 0.4 mg Tablet, Sublingual 0.4 mg SUBLINGUAL Q5-15M PRN (Reason: Chest Pain) RF: 0 benazepril 40 mg Tablet 40 mg PO DAILY RF: 0 fluticasone [Flonase Allergy Relief] 50 mcg/actuation [place],Suspension 1 spray INTRANASAL BEDTIME RF: 0 guaifenesin [Mucinex] 1,200 mg Tablet Extended Release 12hr 1,200 mg PO DAILY RF: 0 Follow up/Referrals: Demarcus Ram PA-C [[facility] [employer]] - 03/24/18 2:20 pm (At [facility]) Pat Hammonds MD [Primary Care Provider] - Provider Discharge Instructions Diet: Carb-consistent/Diabetic Activity: Weightbearing as tolerated, use walker until stable. Limit twisting/ bending, no lifting greater than 5 lbs Cold/Heat Therapy: Apply ice to surgical site 20 minutes at a time prn pain Skin/Wound/Dressing Care Report to your healthcare provider any signs of infection, such as:: chills, fever, night sweats, increased pain, unusual drainage and unusual redness Dressing: Keep dressing clean, dry, and intact until post-op appointment. Visit Report/Discharge Packet Visit Report Forms: Stroke Signs & Symptoms Discharge Data Primary Care Provider: Pat Hammonds Attending Provider: Kenny Johnston Admmaylin Date/Time: 03/12/18 10:47 Quality VTE Deep Vein Thrombosis/Pulmonary Embolism Present on Admission: No
[2018-03-14 09:55] VITALS: BP 127/70; PULSE 90; RESP 16; TEMP 36.6; O2SAT 93
[2018-03-14] MEDS: guaiFENesin ER 600 MG TAB 1200 MG PO (10:01)
[2018-03-14] MEDS: METOPROLOL IR 50 MG TABLET PO (10:02)
[2018-03-14] MEDS: ASPIRIN EC 81 MG TABLET PO (10:02)
[2018-03-14] MEDS: DOCUSATE 100 MG CAPSULE PO (10:02)
[2018-03-14] MEDS: BENAZEPRIL 20 MG TABLET 40 MG PO (10:03)
--- NOTE | 2018-03-14 10:45 | PT.IPTN ---
Current Diagnoses Spondylolisthesis, lumbar region (03/12/18) Spinal stenosis, lumbar region with neurogenic claudication (03/12/18) Surgery Performed Operation Date: 03/12/18 12:15 Actual Procedures p L4-5 Laminectomy with Anterior and Posterior(XLIF)Instrumented fusion with bone graft - Kenny Johnston MD Physical Therapy Treatment Note M2 PT-IP Current Condition Start: 03/13/18 09:42 Freq: NEEDED Status: Active Protocol: Document 03/13/18 13:30 NFW (Rec: 03/13/18 14:31 NFW [id number]) Physical Therapy Current Condition Current Condition Evaluation Date 03/13/18 Treatment Diagnosis L4-5 ant. fusion with cage; L4 -5 post fusion; L4-5 screws; L4-5 Laminectomy Onset Date 03/12/18 surgery Precautions Lumbar Precautions Log Roll No Twisting Limit Bending Gait Belt above Incisional Area Other Precautions Lifting restriction at 5 lbs, Weight Bearing Status Weight Bearing Status Full Weight Bearing M3 PT-IP Subjective Start: 03/13/18 09:42 Freq: NEEDED Status: Active Protocol: Document 03/14/18 10:45 AB (Rec: 03/14/18 12:39 AB [id number]) Subjective Physical Therapy Visit Type Type Treatment Note Visit Start Time 10:45 Visit Stop Time 11:15 Total Visit Minutes 30 Number of BIOLOGICAL SCIENCES INSTRUCTOR Visits 0 Therapy Pain Assessment Pain When Pain Assessed At Rest Pain Present Pain Present Pain Reported Location back Intensity 2 Scale Used Numeric (1 - 10) Pain Management Techniques Re-positioning Timing of Activity with Medications M4 PT-IP Mobility and Gait Start: 03/13/18 09:42 Freq: NEEDED Status: Active Protocol: Document 03/14/18 10:45 AB (Rec: 03/14/18 12:39 AB [id number]) PT-Transfer Assessment Sit to and From Stand Sit to and from Stand Standby Assistance Equipment Transfer Assistive Device Gait Belt Front Wheeled Walker Orthotic/Prosthetic Devices or Brace: No Comments Mobility Comments pt refused to do bed mobility. stated that the hospital bed is not set up the same at home and that he plans to use his recliner to sleep on first few days. Gait Assessment Gait Gait Assistance Required: Standby Assistance Distance (Feet) 150 Able to Maintain Weight Bearing Status No During Gait Assistive Devices Assistive Device Gait Belt Front Wheeled Walker Gait Deviations General Gait Pattern Antalgic Flexed Trunk Factors Limiting Gait Function Factors Limiting Gait Function Decreased Activity Tolerance Decreased Strength Limited Range of Motion Pain Poor Balance Stair Climbing Assessment Evaluation Level of Assist On Stairs Contact Guard Assistance Minimal Assistance Devices Stair Climbing Assistive Devices Straight Cane Right Railing Technique/Endurance Stair Climbing Direction Ascend and Descend Stair Climbing Technique Step to Step Number of Steps Climbed 3 Query Text: Stair Climbing Set # Repetitions (reps) 4 Comments Stair Climbing Comments pt completed up/down steps with R rail ascending and then with R rail + SPC requiring CGA to min A. educated spouse on how to assist pt and spouse was able to assist pt safely. M5 PT-IP Objective Assessments Start: 03/13/18 09:42 Freq: NEEDED Status: Active Protocol: Document 03/13/18 09:40 NFW (Rec: 03/13/18 10:12 NFW [id number]) Orientation Orientation/Cognition Level of Alertness Alert Language Function Ability Word Finding Difficulties Sensation Assessment Sensation Gross Sensation WNL Comments Sensation Comments Sensation tested LEs only and intact Muscle Tone Muscle Tone WNL Yes Comments Muscle Tone Comments MMT to long toe extensors and dorsiflexors - WNL M6 PT-IP Treatment Start: 03/13/18 09:42 Freq: NEEDED Status: Active Protocol: Document 03/14/18 10:45 AB (Rec: 03/14/18 12:39 AB [id number]) Physical Therapy Treatment Education Education Provided Precautions Safety Other Treatments Other Treatment Performed Caregiver training conducted and spouse was able to assist pt safely. M7 PT-IP Assessment and Plan Start: 03/13/18 09:42 Freq: NEEDED Status: Active Protocol: Document 03/14/18 10:45 AB (Rec: 03/14/18 12:39 AB [id number]) PT Summary Assessment and Plan Potential Rehabilitation Potential Good Summary Impairments Pain ROM Strength Balance Coordination Sensation Tone Cognition Bed Mobility Transfers Gait Activity Tolerance Progress Towards Goals Progressing Toward Goals Assessment Summary pt doing well with mobility. caregiver training conducted and spouse was able to assist pt safely. pt plans to go home today. Goals Bed Mobility Goal Independent Transfer Goal Contact Guard Assistance Gait Goal Independent Gait Distance 200 Days to Meet Goals 2 Frequency of Treatment Frequency Of Treatment Twice a Day Treatment Plan Physical Therapy Treatment Plan Bed Mobility Training Transfer Training Gait Training Therapeutic Exercise Balance Retraining Post Op Education Discharge Planning Hot or Cold Pack Neuromuscular Re-ed Recommendations To Nursing Amount of Assist Needed 1 Person Assist Discharge Recommendations PT Discharge Recommendations Home with Assistance
--- NOTE | 2018-03-14 12:53 | PC.NURSE ---
discharge pt states pain is controlled with norco tab. up with PT and family training with this AM. cleared for d/c. d/c instructions given to pt and his . notified of f/u apt with MD as well as to call for any additional questions or concerns. Pt took all belongings home with him including CPAP, phone and bruce. PIV removed prior to d/c. pt left in w/c with PATIENT SERVICES MANAGER escort to car.
== END 2018-03-14 11:30 | disposition home or self-care (01) | DRG 454 ==
PROVIDERS: Admitting Provider Orthopaedic Surgery; PCP Family Medicine; Visit Provider Orthopaedic Surgery
PROC: 0SG00A0 Fusion of Lumbar Vertebral Joint with Interbody Fusion Device, Anterior Approach, Anterior Column, Open Approach (ICD-10-PCS; CPT 22558; principal; 2018-03-12 12:15)
DX: M48.062 Spinal stenosis, lumbar region with neurogenic claudication (principal); Z68.41 Body mass index [BMI] 40.0-44.9, adult; G97.41 Accidental puncture or laceration of dura during a procedure; M43.16 Spondylolisthesis, lumbar region; G47.33 Obstructive sleep apnea (adult) (pediatric); I10 Essential (primary) hypertension; E78.5 Hyperlipidemia, unspecified; E11.9 Type 2 diabetes mellitus without complications; Z79.4 Long term (current) use of insulin; I25.10 Atherosclerotic heart disease of native coronary artery without angina pectoris; Z87.891 Personal history of nicotine dependence; E66.01 Morbid (severe) obesity due to excess calories; M85.48 Solitary bone cyst, other site
CPT/HCPCS: 36415; 72100; 76001; 80048; 82962; 85014; 85018; 97116; 97162; 97165; 97530; 97535; C1776; J0330; J0595; J0690; J1100; J1170; J2274; J2405; J2704; J3010